=== PATIENT | female | born 1980 | race Caucasian/White ===

== ENCOUNTER 2024-09-24 17:53 | Outpatient (REF) | payer OTHER, SELFPAY ==
--- NOTE | ~2024-09-24 | MR_ITS ---
EXAMINATION: MR BRAIN WITHOUT CONTRAST CLINICAL INFORMATION: White matter changes. Decreased vision. COMPARISON: August 10, 2018. TECHNIQUE: MRI of the brain was obtained using routine sequences without contrast. FINDINGS: Bilateral, multifocal, patchy and punctate, subcortical deep white matter hyperintense T2 FLAIR no restricted diffusion signal abnormalities involving mostly supratentorial compartment. No gross central vein sign. No acute intracranial hemorrhage, mass effect, midline shift, hydrocephalus or herniation. Pires-white matter differentiation is normal. No restricted diffusion. Flow-void signal within the main cerebral vessels is normal Sellar/suprasellar region demonstrated no masses or signal abnormality. Craniocervical junction is intact with normal position of the cerebellar tonsils. MR/MR head/brain wo con IMPRESSION: Supratentorial compartment White matter disease. Demyelinating disease such as multiple sclerosis should be considered in the correct clinical settings. Overall stable brain. Electronically signed by: Bacilio Leong MD 09/27/2024 07:22 AM EDT
--- OUTSIDE RECORDS SUMMARY | 2024-09-24 17:57 | XMS_ITS | Clinical Summary ---
Author Organization [facility] [address] [facility] lding Address [address] [place] [address] Phone Care Team Providers Care Photographic Developer And Printer Name Role Phone Jessica Jain MD Primary Care Provider [phone] Allergies Active Allergy Reactions Criticality Noted Date Comments Ciprofloxacin Itching Medium 08/19/2015 Miconazole 04/06/2024 Miconazole Nitrate 10/03/2005 Other Reaction(s): Rash/Dermatitis Other 10/24/2010 seasonal Penicillin G Potassium 02/24/2024 Penicillins 04/06/2024 Sulfa (Sulfonamide Antibiotics) 02/24/2024 Sulfadiazine 04/06/2024 Other Reaction(s): Monistat 3 2% vaginal cream Medications hydrocortisone (ANUSOL-HC) 2.5 % rectal cream Apply 1 Applicatorful topically 2 times daily as needed (apply rectally to affected area twice daily as needed). 4 Active omeprazole (PriLOSEC) [address] capsule Take 1 Capsule by mouth every morning (before breakfast) for 360 days. 3 Active famotidine (PEPCID) 20 mg tablet Take 1 Tablet by mouth 2 times daily as needed for Heartburn for up to 360 days. 3 Active ondansetron (ZOFRAN) 4 mg tablet Take 1 tablet (4 mg total) by mouth every 8 (eight) hours if needed. 2 Active QUEtiapine (SEROquel) 50 mg tablet Take 10 tablets (500 mg total) by mouth at bedtime. Active lamoTRIgine (LaMICtal) 100 mg tablet Take 250 mg by mouth daily. Active buPROPion (WELLBUTRIN) 100 mg tablet Take 100 mg by mouth daily. Active butalbital-laura taminophen-caf feine 50-300-40 mg capsule Take 1-2 Capsules by mouth daily as needed. Active amphetamine-de xtroamphetamin e (ADDERALL) 10 mg tablet TAKE 2 TABLETS BY MOUTH EVERY MORNING TAKE 2 TABLETS BY MOUTH AT NOON 2 Active spironolactone (ALDACTONE) 100 mg tablet Take 1 tablet (100 mg total) by mouth 1 (one) time each day. 2 Active gabapentin (NEURONTIN) 300 mg capsule TAKE 2 CAPSULES BY MOUTH AT BEDTIME 2 Active galcanezumab-g nlm (Emgality Pen) 120 mg/mL injection pen Inject into the skin. Active estradioL (Norma) 0.1 mg/[address] 1 patch on the skin 2 (two) times a week. 24 each 3 4 04/08/20 25 Active valACYclovir (VALTREX) 1 gram tablet Take 1 tablet (1,000 mg total) by mouth 1 (one) time each day. 90 tablet 3 4 Active Active Problems Problem Noted Date Diagnosed Date Family history of breast cancer 04/06/2024 Overview (04/23/2024): Empower negative TC score 10%-plan for mammograms age 38 Esophageal stenosis 09/03/2022 Bipolar disorder ([facility] V24, [facility] V28) 10/10 Overview (02/24/2024): Dr. Tidwell Multiple thyroid nodules 10/18/2021 Overview (02/24/2024): 1.3cm right & 1.0cm left thyroid nodules (02/26/21, cervical CT scan) History of COVID-19 01/08/2021 Overview (04/03/2024): DX: 07/2020 Again 02/2022 White matter disease 05/12/2015 Overview (02/24/2024): Dr. Tidwell Acne 11/25/2012 Genital herpes 11/25/2012 Thrombocytopenia ([facility] V24) 03/21/2011 Patent foramen ovale 11/06/2010 Overview (02/24/2024): Noted on echo 10/20 Onychomycosis 01/29/2010 Constipation 05/23/2005 Overview (02/24/2024): IMO update Irritable bowel syndrome 05/23/2005 Esophageal reflux 12/20/2003 Depression 09/17/2002 Migraine without aura 06/13/2000 Immunizations Name Administration Dates Next Due Hepatitis B (Unqttgl-B-Nlqnz , Recombivax HB-Adult) 19yo and older 09/30/2018,01/01/2017 Influenza trivalent, 0.5mL, preservative free (Fluarix; FluLaval; Fluzone) ages 6mo and older (Afluria) 3 years and older 02/23/2013,02/05/2011 MMR, measles mumps and rubel la Live (Priorix; M-M-R II) 12mo and older 09/30/2018,01/01/2017 PPD Test 08/14/2010 [employer] SARS-CoV-2 COVID-19, mRNA, LNP-S, preservative free 04/17/2021 Tdap Tetanus diptheria acell ular pertussis (Boostrix; Adacel) 7yo and older 01/08/2021,01/29/2010 Surgical History Surgery Date Site/Laterality Comments MOLE REMOVAL PROCEDURE: HISTORICAL MOLE (REMOVAL OF); COMMENT: Dysplastic nevus 12/29 right thigh (mild atypia) WISDOM TOOTH EXTRACTION PROCEDURE: HISTORICAL WISDOM TEETH EXTRACTION LAPAROSCOPY DIAGNOSTIC / BIOPSY / ASPIRATION / LYSIS 09/02/2012 PROCEDURE: PELVIS LAPAROSCOPY, DIAGNOSTIC; COMMENT: Laparoscopic left ovarian cystectomy; fulguration of endometriosis performed by Dr. Beck. LAPAROSCOPY DIAGNOSTIC / BIOPSY / ASPIRATION / LYSIS 04/28/2013 PROCEDURE: PELVIS LAPAROSCOPY, DIAGNOSTIC; COMMENT: da Jenna excision of pelvic endometriosis and uterosacral ligament ligation performed by Dr. Beck. ROBOTIC ASSISTED HYSTERECTOMY 03/30/2014 PROCEDURE: HISTORICAL ROBOTIC HYSTERECTOMY WITH OR WITHOUT BSO; COMMENT: da Jenna total hysterectomy with BSO performed by Dr. Beck CHOLECYSTECTOMY 2017 PROCEDURE: LAPAROSCOPIC CHOLECYSTECT; COMMENT: Dr. Finch OTHER SURGICAL HISTORY 01/2023 Bilateral PROCEDURE: SCR MAMMO BI INCL CAD Medical History Medical History Date Comments Migraine without aura, witho ut mention of intractable migraine without mention of status migrainosus 06/13/2000 DX:Migraine with out aura, without mention of intractable migraine without mention of status migrainosus Insomnia, unspecified 07/27/2001 DX:Insomni a, unspecified Depressive disorder, not els ewhere classified 09/17/2002 DX:Depressive disorder, not elsewhere classified Esophageal reflux 12/20/2003 DX:Esophageal reflux Irritable bowel syndrome 05/23/2005 DX:Irri table bowel syndrome Unspecified constipation 05/23/2005 DX:Unsp ecified constipation Venereal disease, unspecified DX :Venereal disease, unspecified; COMMENT: HSV Other and unspecified noninf ectious gastroenteritis and colitis(558.9) DX:Other and unspec ified noninfectious gastroenteritis and colitis(558.9); COMMENT: IBS Patent foramen ovale 11/06/2010 DX:Patent f oramen ovale Demyelinating disease (CMS/[facility] V24, [facility] V28) 2015 DX:Demyelinating disease (HC C) History of dysplastic nevus DX:H istory of dysplastic nevus; COMMENT: Dysplastic nevus 12/29 right thigh (mild atypia) Post concussion syndrome DX:Post concussion syndrome Endometriosis 2012 Family History Medical History Relation Name Comments Other: brca positive Aunt materna l great aunt Alcohol abuse Father D COPD Father D Cancer Father D Cancer Father's Sister L Ovarian cancer Father's side aunt Diabetes Maternal Grandfather A catarac t Breast cancer Maternal Grandmother J heart disease Cancer Maternal Grandmother J Other: breast lump Mother benign Cancer Mother's Brother B Breast cancer Mother's side great grandmother Other: aspberger's syndrome Son Relation Name Status Comments Aunt Alive Father D Alive Father's Sister L Father's side Maternal Grandfather A Alive Maternal Grandmother J Mother Alive Mother's Brother B Mother's side great grandmother Paternal Grandfather Paternal Grandmother Alive Son Social History Tobacco Use Types Packs/Day Years Used Date Smoking Tobacco: Never Smokeless Tobacco: Never Tobacco Cessation:Counseling Given: Not Answered Alcohol Use Standard Drinks/Week Comments Yes 0 (1 standard drink = 0.6 oz pur e alcohol) Housing Instability Answer Date Recorde d Are you worried that in the next 2 months you may not have stable housing? No 03/31/2024 Food Access & Nutrition Answer Date Rec orded Do you have access to a vari ety of food including fruits and vegetables? Yes 03/31/2024 Access to Healthcare Answer Date Record ed Within the last 3 months, ho w many times did you visit the emergency department for your medical care? 0 03/31/2024 Health Literacy Answer Date Recorded How often do you need to hav e someone help you when you read instructions, pamphlets, or other written material from your doctor or pharmacy? Never 03/31/2024 Caregiver: How often do you need to have someone help you when you read instructions, pamphlets, or other written material from your doctor or pharmacy? Not on file 03/31/2024 Financial Risk Answer Date Recorded How hard is it for you to pa y for the very basics like food, housing, medical care, and air conditioning / heating? Not very hard 03/31/2024 Transportation Answer Date Recorded Has the lack of transportati on kept you from meetings, work, or from getting things needed for daily living? No Has the lack of transportati on kept you from medical appointments or from getting medications? No 03/31/2024 Social Isolation Answer Date Recorded How often do you feel lonely or isolated from th ose around you? Rarely 03/31/2024 Food Risk Answer Date Recorded Within the past 12 months we worried whether our food would run out before we got money to buy more. Never true 03/31/2024 Within the past 12 months th e food we bought just didn't last and we didn't have money to get more. Never true 03/31/2024 Dependent Care Answer Date Recorded Do you need help finding or paying for care for your loved ones. For example, director child development center or elderly care for an older adult? No 03/31/2024 Education Answer Date Recorded Do you think completing more education or training, like finishing a GED, going to college, or learning a trade, would be helpful for you? No 03/31/2024 Employment and Income Answer Date Recor ded During the last four weeks, have you been actively looking for work? No 03/31/2024 Living Situation Answer Date Recorded What is your living situation? 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 Case Delivery Location:[facility] 2003 IAB Surgic al [place] 2009 IAB 7w0 d Surgic al [place] 2010 Term 39w 0d 3667 g (129.4 oz) M Vag-Sp ont Local Livin g 9 9 William Trammell i,clive Delivery Location:[facility] Last Filed Vital Signs Vital Sign Reading Time Taken Comments Blood Pressure 116/78 04/06/2024 3:40 PM EST Pulse 90 04/06/2024 3:40 PM EST Temperature - - Respiratory Rate - - Oxygen Saturation - - Inhaled Oxygen Concentration - - Weight 58.8 kg (129 lb 9.6 oz) 04/06/2024 3:40 P M EST Height 165.1 cm (5' 5 ) 12/11/2023 9:08 AM EDT Body Mass Index 21.57 12/11/2023 9:08 AM EDT Plan of Treatment Upcoming Encounters Date Type Department Care Team (Late st Contact Info) Description 02/08/2025 7:30 AM EDT Appointment Radiology Department [address] [id number] Health Maintenance Due Date Last Done Comments Cervical Cancer Screening: HPV 12/03/2017 12/03/2012 Cervical Cancer Screening: Pap Smear 12/03/2017 12/03/2012, 12/03/2012 Hepatitis B Vaccines (3 of 3 - 19+ 3-dose series) 11/25/2018 09/30/2018, 01/01/2017 Colorectal Cancer Screening: Colonoscopy 04/20/2022 COVID-19 Vaccine ( season) 2024 05/17/2023, 06/22/2022, 04/17/2021, Additional history exists Influenza Vaccine (Season Ended) 2025 02/23/2013, 02/05/2011 Depression Screening 03/31/2025 03/31/2024 Social Influencers of Health Screening 03/31/2025 03/31/2024 Breast Cancer Screening 01/28/2026 01/29/20, 01/29/2024, 01/22/2023, Additional history exists Cholesterol Screening (Lipid Panel) 04/02/2026 04/02/2021 DTaP,Tdap,and Td Vaccines (3 - Td or Tdap) 01/08/2031 01/08/2021, 01/29/2010 HIV Screening Completed 12/17/2017 Hepatitis C Screening Completed 12/17/2017 MMR Vaccines Aged Out 09/30/2018, 01/01/2017 No lo nger eligible based on patient's age to complete this topic HIB Vaccines Aged Out No longer eligi ble based on patient's age to complete this topic HPV Vaccines Aged Out No longer eligi ble based on patient's age to complete this topic Hepatitis A Vaccines Aged Out No long er eligible based on patient's age to complete this topic IPV Vaccines Aged Out No longer eligi ble based on patient's age to complete this topic Meningococcal ACWY Vaccine Aged Out N o longer eligible based on patient's age to complete this topic Meningococcal B Vaccine Aged Out No l onger eligible based on patient's age to complete this topic Pneumococcal Vaccine: Pediatrics (0 to 5 Years) and At-Risk Patients (6 to 64 Years) Aged Out No longer eligible based on patient's age to complete this topic RSV Immunization Patients Under 20 months Aged Out No longer eligible based on patient's age to complete this topic Varicella Vaccines Aged Out No longer eligible based on patient's age to complete this topic Procedures Procedure Name Priority Date/Time Associated Diagnosis Comments SCREENING MAMMOGRAPHY BI 2-VIEW BREAST INC CAD Routine 01/29/2024 7:50 AM EDT Encounter for screening mammogram for malignant neoplasm of breast LIPID PANEL Routine 04/02/2021 HEPATITIS C SCREENING Routine 12/17/2017 HIV SCREENING Routine 12/17/2017 HPV Routine 12/03/2012 from Last 3 Months or Most Recently Relevant to Health Maintenance Results * SCREENING MAMMOGRAPHY BI 2-VIEW BREAST INC CAD (01/29/2024 7:50 AM EDT) Anatomical Region Laterality Modality Radiographic Brianna ging 01/22/2023 7:41 AM EDT Narrative 01/29/2024 4:39 PM EDT This is a summary report. The complete report is available in the patient's medical record. If you cannot access the medical record, please contact the sending organization for a detailed fax or copy. Exam: Screening mammogram Findings: Digital bilateral full-field screening mammography is performed with tomosynthesis and interpreted with the aid of computer-aided detection. ??Comparison is made with 01/22/2023 and as far back as 01/03/2020. Breast parenchyma is heterogeneously dense, which may obscure small masses. ??No new suspicious mass, architectural distortion, or suspicious calcifications. Impression: No mammographic evidence of malignancy. BI-RADS 1 - negative [facility] [address] [address] Procedure Note Darlin Vega MD - 02/25/2024 This is a summary report. The complete report is available in thepatient's medical record. If you cannot access the medical record, pleasecontact the sending organization for a detailed fax or copy. Exam: Screening mammogram Findings: Digital bilateral full-field screening mammography is performedwith tomosynthesis and interpreted with the aid of computer-aideddetection. Comparison is made with 01/22/2023 and as far back as01/03/2020. Breast parenchyma is heterogeneously dense, which may obscure smallmasses. No new suspicious mass, architectural distortion, or suspiciouscalcifications. Impression: No mammographic evidence of malignancy. BI-RADS 1 - negative [facility] [address] [place] [address] Result [facility] CNM IMG XR PROCEDURES Final Result * Lipid panel (04/02/2021) [facility] LDL/HDL Ratio 2 0 - 4 Triglycerides 46 0 - 150 mg/dL Cholesterol 184 0 - 200 mg/dL HDL 93 >=40 mg/dL LDL Cholesterol 82 0 - 100 mg/dL Blood Venous blood specimen / Unknown Result [facility] Provider LAB BLOOD ORDERABLES Tiffanie l Result * HIV Screening (12/17/2017) [facility] HIV Screening abstracted Result [facility] Provider HEALTH MAINTENANCE Final Result * Hepatitis C Screening (12/17/2017) [facility] Hepatitis C Screening abstracted Result [facility] Provider HEALTH MAINTENANCE Final Result * Cervical Cancer Screening: HPV (12/03/2012) [facility] Cervical Cancer Screening: HPV abstracted, negative Result [facility] Provider HEALTH MAINTENANCE Final Result from Last 3 Months or Most Recently Relevant to Health Maintenance Insurance [facility] Care Teams Photographic Developer And Printer Relationship Specialty Start Date End Date Jessica Jain MD [address] [place] [address] PCP - General 12/20/03
== END 2024-09-24 17:54 | disposition home or self-care (01) ==
LOC: HO.MRI 17:53
PROVIDERS: PCP Internal Medicine; Visit Provider Registered Nurse
DX: G93.49 Other encephalopathy (principal)
CPT/HCPCS: 70551

== ENCOUNTER → 2024-09-24 18:10 | Outpatient (BNV) | payer OTHER, SELFPAY | PROVIDERS: PCP Internal Medicine; Visit Provider Radiology Diagnostic Radiology | DX: G37.9 Demyelinating disease of central nervous system, unspecified (principal); R90.82 White matter disease, unspecified | CPT/HCPCS: 70551 ==

== ENCOUNTER 2024-11-24 13:48 | Outpatient (AMB) | payer OTHER, SELFPAY ==
--- NOTE | 2024-11-24 13:48 | MHC.OFFVIS ---
Intake Visit Reasons: 3M Migraine Allergies Penicillins Allergy (Unknown, Unverified 11/24/24 13:49) RASH Sulfa (Sulfonamide Antibiotics) Allergy (Unknown, Unverified 11/24/24 13:49) RASH From Monistat 3 Allergy (Mild, Uncoded 11/24/24 13:49) RASH Medication List - Last Reconciled 11/24/24 by Julee Guajardo CNP inzdartpjs-rfvetwhcjwqdu-swks 50-325-40 mg 1 - 2 caps PO DAILY PRN clonazepam (Klonopin) 1 mg PO DAILY dextroamphetamine-amphetamine 10 mg (Adderall) 10 mg PO TID divalproex 250 mg PO ONCE estradiol 1 patch topical 2XW etonogestrel-ethinyl estradiol 0.12-0.015 mg/24 hr (NuvaRing) 1 vag ring vaginal Q4W galcanezumab-gnlm (Emgality Pen) 120 mg subcut lamotrigine (Lamictal) 200 mg PO DAILY ondansetron 4 mg PO DAILY pantoprazole (Protonix) 40 mg PO DAILY propranolol 10 mg PO ONCE quetiapine (Seroquel) 25 mg PO DAILY spironolactone 25 mg PO DAILY sumatriptan succinate take 1 tab at onset of headache; if no relief may repeat 1 tab after at least 2 hrs; max = 4 tabs/24 hr PO valacyclovir (Valtrex) 1,000 mg PO BID HPI Comments Details: 43 y/o woman with depression, bipolar disorder, endometriosis, possible demyelinating disease, and migraine headaches. She was doing okay. Migraines were better with Emgality, but headaches increased about a week before next dose was due. She was under some more stress lately related to her mother's health and was having few more headaches. Sleep was up and down. Off balance at times, but no falls. No issues with bladder control. [facility] Medical History (Updated 11/24/24 @ 14:21 by Julee Guajardo CNP) Bipolar disorder Dysphagia Demyelinating disease Unsteadiness Migraine Review of Systems Const Denies chills, Denies daytime sleepiness, Reports difficulty sleeping, Denies fatigue, Denies fever(s), Denies frequent falls, Reports headache(s), Denies increased appetite, Denies poor appetite, Denies snoring, Denies weakness, Denies weight gain and Denies weight loss Eyes Denies loss of vision ENT Denies vertigo, Denies dizziness and Reports headache(s) Card Denies chest pain at rest, Denies chest pain with activity, Denies syncope, Denies leg edema and Denies palpitations Resp Denies snoring GI Denies constipation, Denies heartburn, Denies diarrhea and Denies nausea Denies urinary frequency, Denies urinary incontinence and Reports urinary urgency Musc Reports abnormal gait (balance difficulty), Denies numbness and Denies tingling Skin/Breast Denies dry skin and Denies rash Neuro Reports abnormal gait (balance difficulty), Denies vertigo, Denies dizziness, Denies syncope, Denies frequent falls, Reports headache(s), Denies lack of coordination, Denies loss of vision, Denies memory loss, Denies numbness, Denies restless legs, Denies seizure-like activity, Denies tingling, Denies paresthesias, Denies tremor(s) and Denies weakness Psych Reports anxiety, Denies depression, Denies auditory hallucinations, Denies memory loss, Denies visual hallucinations, Denies suicidal ideation and Reports other (stress) Endo Denies fatigue and Denies palpitations Results Reviewed Results Reviewed: [address] [address] Magnetic Resonance Report Signed Patient: Lisa Lyons MR#: [id number] : 1980 Acct:[id number] Age/Sex: 43 / F ADM Date: 09/24/24 Loc: HO.MRI Attending Dr: Julee Guajardo CNP Ordering Physician: Julee Guajardo CNP Date of Service: 09/24/24 Procedure(s): MR head/brain wo con Accession Number(s): [id number] cc: Julee Guajardo CNP; Jessica Jain MD~ EXAMINATION: MR BRAIN WITHOUT CONTRAST CLINICAL INFORMATION: White matter changes. Decreased vision. COMPARISON: August 10, 2018. TECHNIQUE: MRI of the brain was obtained using routine sequences without contrast. FINDINGS: Bilateral, multifocal, patchy and punctate, subcortical deep white matter hyperintense T2 FLAIR no restricted diffusion signal abnormalities involving mostly supratentorial compartment. No gross central vein sign. No acute intracranial hemorrhage, mass effect, midline shift, hydrocephalus or herniation. Pires-white matter differentiation is normal. No restricted diffusion. Flow-void signal within the main cerebral vessels is normal Sellar/suprasellar region demonstrated no masses or signal abnormality. Craniocervical junction is intact with normal position of the cerebellar tonsils. MR/MR head/brain wo con IMPRESSION: Supratentorial compartment White matter disease. Demyelinating disease such as multiple sclerosis should be considered in the correct clinical settings. Overall stable brain. MRI brain WO at [facility] in Aug 2018: No change MRI brain WO at [facility] in Jul 2017: No change CT brain WO at [facility] in Jun 2014: WNL MRI brain WWO at [facility] in Mar 2017: mltiple b/l WM lesions, possible demylinating disease LP at [facility] in May 2017: OP 110mm, WBCs 1, RBCs 0, Glu 56, Pro 29, IgG ind: WNL, OCBs: 5 bands in CSF and in serum but some in CSF are more prominant EPs at office in 2018: b/l delayed VERs Labs in 2018: Lyme neg, JAMES, Lupus anticoagulant ok, ESR 2. IF ok. Assessment & Plan Assessment & Plan (1) Migraine: Code(s): G43.909 - Migraine, unspecified, not intractable, without status migrainosus Category: Medical Qualifiers: Intractability: not intractable Migraine type: unspecified Status migrainosus presence: without status migrainosus Qualified Code(s): G43.909 - Migraine, unspecified, not intractable, without status migrainosus Plan: Continue Emgality Solution Auto-injector 120mg/mL 1mL subcutaneous monthly Continue ondansetron tablet disintegrating 4mg 1 tablet on the tongue and allow to dissolve as needed for nausea Continue hjvloxbxld-AWRX-pailzfkc 50-325-40mg 1-2 capsules daily as needed for headache #10 for 30 days (2) White matter disease: Code(s): R90.82 - White matter disease, unspecified Category: Medical Plan: MRI results reviewed, no change from previous. Plan Meds tried for headaches: Propranalol (fatigue), Topiramate (nightmares), Sumatriptan, Fiorecet, Metoclopromide, depakote (weight gain). amtryptiline, verapamil Medications: New ondansetron 4 mg PO DAILY PRN 10 tabs 5RF nausea and vomiting 30 days Discontinued ondansetron Discontinued Reason: Order 4 mg PO DAILY Coding Level of Care Code Est Pt Level 4 (61663) Diagnoses Migraine without status migrainosus, not intractable, unspecified migraine type G43.909 Intractability: not intractable Migraine type: unspecified Status migrainosus presence: without status migrainosus White matter disease R90.82
--- OUTSIDE RECORDS SUMMARY | 2024-11-24 14:40 | XMS_ITS | Clinical Summary ---
Author Organization [facility] [address] [facility] [address] Address [address] [place] [address] Phone Care Team Providers Care Justice Professor Name Role Phone Jessica Jain MD Primary Care Provider [phone] Allergies Active Allergy Reactions Criticality Noted Date [...] 40 Esophageal stenosis 09/03/2022 Bipolar disorder ([facility] V24, [facility] V28) 10/10 Overview (02/24/2024): Dr. Tidwell Multiple thyroid nodules 10/18/2021 Overview (02/24/2024): 1.3cm right & 1.0cm left thyroid nodules (02/26/21, cervical CT scan) History of COVID-19 01/08/2021 Overview (04/03/2024): DX: 07/2020 Again 02/2022 White matter disease 05/12/2015 Overview (02/24/2024): Dr. Tidwell Acne 11/25/2012 Genital herpes 11/25/2012 Thrombocytopenia ([facility] V24) 03/21/2011 Patent foramen ovale 11/06/2010 Overview (02/24/2024): Noted on echo 10/20 Onychomycosis 01/29/2010 Constipation 05/23/2005 Overview (02/24/2024): IMO update Irritable bowel syndrome 05/23/2005 Esophageal reflux 12/20/2003 Depression 09/17/2002 Migraine without aura 06/13/2000 Immunizations Name Administration Dates Next Due Hepatitis B (Ispuebv-P-Pioqx , Recombivax HB-Adult) 19yo and older 09/30/2018,01/01/2017 Influenza trivalent, 0.5mL, preservative free (Fluarix; FluLaval; Fluzone) ages 6mo and older (Afluria) 3 years and older 02/23/2013,02/05/2011 MMR, measles mumps and rubel la Live (Priorix; M-M-R II) 12mo and older 09/30/2018,01/01/2017 PPD Test 08/14/2010 Brainlike SARS-CoV-2 COVID-19, mRNA, LNP-S, preservative free 04/17/2021 [...] oramen ovale Demyelinating disease (CMS/H CC V24, CMS/[facility] V28) 2015 DX:Demyelinating disease (HC C) History [...] care for your loved ones. For example, children's choir director or elderly care for an older adult? [...] Livin g Froylan geiger Dr. Case Delivery Location:[facility] 2003 [facility] [place] 2009 IAB 7w0 d Surgic al [place] 2010 Term 39w 0d 3667 g (129.4 oz) M Vag-Sp ont Local Livin g 9 9 William Trammell i,clive Delivery Location:[facility] Last Filed Vital Signs Vital Sign Reading [...] 02/08/2025 7:30 AM EDT Appointment Radiology Department [address] [address] Health Maintenance Due Date Last Done Comments Cervical Cancer Screening: HPV 12/03/2017 12/03/2012 Cervical Cancer Screening: Pap Smear 12/03/2017 12/03/2012, 12/03/2012 Hepatitis B Vaccines (3 of 3 - 19+ 3-dose series) 11/25/2018 09/30/2018, 01/01/2017 Colorectal Cancer Screening: Colonoscopy 04/20/2022 COVID-19 Vaccine ( season) 2024 05/17/2023, 06/22/2022, 04/17/2021, Additional history exists Influenza Vaccine (#1) 2025 02/23/2013, 2010 Depression Screening 03/31/2025 03/31/2024 Social Influencers of [...] 5 Years) and At-Risk Patients (6 to 49 Years) Aged Out No longer eligible based [...] interpreted with the aid of computer-aided detection. Comparison is made with 01/22/2023 and as far back as 01/03/2020. Breast parenchyma is heterogeneously dense, which may obscure small masses. No new suspicious mass, architectural distortion, or suspicious calcifications. Impression: No mammographic evidence of malignancy. BI-RADS 1 - negative [facility] [address] [place] [id number] Procedure Note Darlin Vega MD - 02/25/2024 [...] evidence of malignancy. BI-RADS 1 - negative [facility] [address], [place] [id number] Result [facility] CNM IMG XR PROCEDURES Final Result * Lipid panel (04/02/2021) Pathologist [facility] LDL/HDL Ratio 2 0 - 4 Triglycerides 46 0 - 150 mg/dL Cholesterol 184 0 - 200 mg/dL HDL 93 >=40 mg/dL LDL Cholesterol 82 0 - 100 mg/dL Blood Venous blood specimen / Unknown Result [facility] Provider LAB BLOOD ORDERABLES Tiffanie l Result * HIV Screening (12/17/2017) [facility] HIV Screening abstracted Result [facility] Provider HEALTH MAINTENANCE Final Result * Hepatitis C Screening (12/17/2017) Pathologist [facility] Hepatitis C Screening abstracted [facility] Provider HEALTH MAINTENANCE Final Result * Cervical Cancer Screening: HPV (12/03/2012) [facility] Cervical Cancer Screening: HPV abstracted, negative Result [facility] Provider HEALTH MAINTENANCE Final Result from Last 3 Months or Most Recently Relevant to Health Maintenance Insurance [facility] [address] [place] [address] Care Teams Justice Professor Relationship Specialty Start Date End Date Jessica Jain MD [address] [place] [address] PCP - General 12/20/03
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
== END 2024-11-24 14:27 | disposition home or self-care (01) ==
PROVIDERS: PCP Internal Medicine; Referring Provider Internal Medicine; Visit Provider Registered Nurse
DX: G43.909 Migraine, unspecified, not intractable, without status migrainosus (principal); R90.82 White matter disease, unspecified
CPT/HCPCS: 99214